=== PATIENT | female | born 1960 | race Hispanic/Latino ===

== ENCOUNTER 2019-04-23 18:05 | Emergency (ER) | payer OTHER, MEDICARE ==
[2019-04-23] MEDS ORDERED: MORPHINE 2 MG/1 ML INJ IV ONE (19:02)
[2019-04-23] MEDS ORDERED: FAMOTIDINE 20 MG/2 ML INJ IV ONE (19:02)
[2019-04-23] MEDS ORDERED: DICYCLOMINE 20 MG/2 ML INJ IM ONE (19:02)
[2019-04-23] MEDS ORDERED: SODIUM CHLORIDE 0.9% 1000 ML 1,000 ML IV ONE (19:02)
[2019-04-23] MEDS ORDERED: ONDANSETRON 4 MG/2 ML INJ IV ONE (19:02)
--- NOTE | 2019-04-23 20:11 | XRay Report ---
CHEST 2 VIEWS INDICATION: chest pain. COMPARISON: None. FINDINGS: Support devices: None. Heart: Mild cardiomegaly. Lungs/Pleura: No acute air space or interstitial disease. No significant pleural effusion. IMPRESSION: Mild cardiomegaly. Signer Name: Dougie Gunderson MD Signed: 04/23/2019 8:07 PM Workstation Name: [id number]
[2019-04-23 20:38] LABS: Basophils # (Auto) 0.1 K/mm3 (0.0-0.1); Basophils % (Auto) 0.9 % (0.0-1.8); Eosinophils # (Auto) 1.5 K/mm3 (0.0-0.4); Eosinophils % (Auto) 9.5 % (0.0-4.3); Hematocrit 40.1 % (30.3-42.9); Hemoglobin 14.1 gm/dl (10.1-14.3); Lymphocytes # (Auto) 2.9 K/mm3 (1.2-5.4); Lymphocytes % (Auto) 18.9 % (13.4-35.0); Mean Corpuscular HGB Conc 35 % (30-34); Mean Corpuscular Volume 92 fl (79-97); Monocytes # (Auto) 0.9 K/mm3 (0.0-0.8); Monocytes % (Auto) 6.1 % (0.0-7.3); Platelet Count 294 K/mm3 (140-440); Red Blood Count 4.37 M/mm3 (3.65-5.03); Red Cell Distribution Width 14.2 % (13.2-15.2)
[2019-04-23 20:49] LABS: INR 0.94 (0.87-1.13)
[2019-04-23 20:50] LABS: Partial Thromboplastin Time 39.2 Sec. (24.2-36.6)
[2019-04-23 21:01] LABS: Alanine Aminotransferase 50 units/L (7-56); Albumin 3.9 g/dL (3.9-5); BUN/Creatinine Ratio 11; Blood Urea Nitrogen 8 mg/dL (7-17); Calcium 9.8 mg/dL (8.4-10.2); Hemolysis Index 4
[2019-04-23] MEDS ORDERED: MORPHINE 4 MG/1 ML INJ IV ONE (21:44)
--- NOTE | 2019-04-23 22:32 | Cat Scan Report ---
CT abdomen pelvis w con INDICATION: MAIN: 100ml Omni 300 epigastric pain nausea and vomiting. TECHNIQUE: All CT scans at this location are performed using the following dose modulation technique: Automated exposure control. CONTRAST: Omnipaque 300, 100 cc IV injection. COMPARISON: None available. CT ABDOMEN the parenchymal organs are unremarkable in appearance. Negative for abdominal mass or flui d collection. There is mild enhancement of the stomach greatest distally. Fluid is scattered at the c olon without significant wall thickening. Negative for significant bowel dilatation. Status post previous cholecystectomy. Negative for biliary dilatation. CT PELVIS: Negative for mass, fluid collection or inflammation. A normal appendix is identified. IMPRESSION: Possible gastritis/gastroenteritis. Signer Name: Dougie Gunderson MD Signed: 04/23/2019 10:28 PM Workstation Name: [id number]
--- NOTE | 2019-04-23 22:52 | Emergency Department Report ---
ED General Adult HPI - General Chief complaint: Chest Pain Stated complaint: CHEST PAIN Time Seen by Provider: 04/23/19 18:52 Source: patient, EMS Mode of arrival: Stretcher Limitations: No Limitations - History of Present Illness Initial comments: Patient is a 58-year-old female who is presenting with epigastric and chest discomfort. Patient states 2 days ago she had some watery diarrhea which is actually starting to resolve. Today she is having some epigastric discomfort with radiation of pain into the chest and left arm.. Patient denies cough cold or congestion. She has some mild nausea but no vomiting. Patient has a history of takotsubo syndrome. Patient was diagnosed with this in November 2018. Patient had a cardiac cath at that time for chest discomfort. He also has a history of cholecystectomy Severity scale (0 -10): 6 - Related Data Previous Rx's Medication Instructions Recorded Last Taken Type Dicyclomine [Bentyl] 20 mg PO QID #10 tablet 04/23/19 Unknown Rx Ondansetron [Zofran Odt] 4 mg PO Q8HR #10 tab.rapdis 04/23/19 Unknown Rx Pantoprazole [Protonix] 40 mg PO QDAY #30 tablet 04/23/19 Unknown Rx traMADoL [Ultram] 50 mg PO Q6HR PRN #12 tablet 04/23/19 Unknown Rx Allergies Allergy/AdvReac Type Severity Reaction Status Date / Time No Known Allergies Allergy Unverified 04/23/19 20:48 ED Review of Systems ROS: Stated complaint: CHEST PAIN Other details as noted in HPI Comment: All other systems reviewed and negative ED Past Medical Hx - Past Medical History Previous Medical History?: Yes Hx Heart Attack/AMI: Yes Hx GERD: Yes Hx COPD: Yes - Social History Smoking Status: Current Every Day Smoker Substance Use Type: Marijuana - Medications Home Medications: Home Medications Medication Instructions Recorded Confirmed Last Taken Type Dicyclomine [Bentyl] 20 mg PO QID #10 tablet 04/23/19 Unknown Rx Ondansetron [Zofran Odt] 4 mg PO Q8HR #10 tab.rapdis 04/23/19 Unknown Rx Pantoprazole [Protonix] 40 mg PO QDAY #30 tablet 04/23/19 Unknown Rx traMADoL [Ultram] 50 mg PO Q6HR PRN #12 tablet 04/23/19 Unknown Rx ED Physical Exam - General Limitations: No Limitations General appearance: alert, in no apparent distress - Head Head exam: Present: atraumatic, normocephalic - Eye Eye exam: Present: normal appearance - ENT ENT exam: Present: mucous membranes moist - Neck Neck exam: Present: normal inspection - Respiratory Respiratory exam: Present: normal lung sounds bilaterally. Absent: respiratory distress, wheezes, rales - Cardiovascular Cardiovascular Exam: Present: regular rate, normal rhythm, normal heart sounds. Absent: systolic murmur, diastolic murmur, rubs, gallop - GI/Abdominal GI/Abdominal exam: Present: soft, tenderness (epigastric), normal bowel sounds. Absent: distended, guarding, rebound, rigid - Extremities Exam Extremities exam: Present: normal inspection - Back Exam Back exam: Present: normal inspection - Neurological Exam Neurological exam: Present: alert, oriented X3 - Psychiatric Psychiatric exam: Present: normal affect, normal mood - Skin Skin exam: Present: warm, dry, intact, normal color. Absent: rash ED Course Vital Signs 04/23/19 04/23/19 04/23/19 19:25 19:36 19:59 Temperature 97.6 F 99.4 F Pulse Rate 69 70 Respiratory 17 17 18 Rate Blood Pressure 143/71 Blood Pressure 143/71 [Left] O2 Sat by Pulse 99 98 Oximetry 04/23/19 04/23/19 04/23/19 20:01 20:29 20:30 Temperature Pulse Rate 67 70 Respiratory 12 18 16 Rate Blood Pressure 132/47 140/63 Blood Pressure [Left] O2 Sat by Pulse 97 95 Oximetry 04/23/19 04/23/19 04/23/19 21:00 21:31 21:58 Temperature Pulse Rate 73 78 Respiratory 16 22 18 Rate Blood Pressure 157/77 141/84 Blood Pressure [Left] O2 Sat by Pulse 96 94 Oximetry ED Medical Decision Making - Lab Data Result diagrams: 04/23/19 20:16 04/23/19 20:16 Lab Results 04/23/19 04/23/19 04/23/19 Range/Units 20:16 20:16 20:16 WBC 15.3 H (4.5-11.0) K/mm3 RBC 4.37 (3.65-5.03) M/mm3 Hgb 14.1 (10.1-14.3) gm/dl Hct 40.1 (30.3-42.9) % MCV 92 (79-97) fl MCH 32 (28-32) pg MCHC 35 H (30-34) % RDW 14.2 (13.2-15.2) % Plt Count 294 (140-440) K/mm3 Lymph % (Auto) 18.9 (13.4-35.0) % [place] % (Auto) 6.1 (0.0-7.3) % Eos % (Auto) 9.5 H (0.0-4.3) % Baso % (Auto) 0.9 (0.0-1.8) % Lymph # 2.9 (1.2-5.4) K/mm3 [place] # 0.9 H (0.0-0.8) K/mm3 Eos # 1.5 H (0.0-0.4) K/mm3 Baso # 0.1 (0.0-0.1) K/mm3 Seg Neutrophils % 64.6 (40.0-70.0) % Seg Neutrophils # 9.9 H (1.8-7.7) K/mm3 PT 12.7 (12.2-14.9) Sec. INR 0.94 (0.87-1.13) APTT 39.2 H (24.2-36.6) Sec. Sodium 137 (137-145) mmol/L Potassium 3.6 (3.6-5.0) mmol/L Chloride 101.7 (98-107) mmol/L Carbon Dioxide 21 L (22-30) mmol/L Anion Gap 18 mmol/L BUN 8 (7-17) mg/dL Creatinine 0.7 (0.7-1.2) mg/dL Estimated GFR > 60 ml/min BUN/Creatinine Ratio 11 % Glucose 114 H (65-100) mg/dL Calcium 9.8 (8.4-10.2) mg/dL Total Bilirubin 0.60 (0.1-1.2) mg/dL AST 113 H (5-40) units/L ALT 50 (7-56) units/L Alkaline Phosphatase 184 H (35-129) units/L Troponin T < 0.010 (0.00-0.029) ng/mL Total Protein 7.3 (6.3-8.2) g/dL Albumin 3.9 (3.9-5) g/dL Albumin/Globulin Ratio 1.1 % Lipase 66 H (13-60) units/L - EKG Data -: EKG Interpreted by Al EKG shows normal: sinus rhythm, axis, intervals, QRS complexes, ST-T waves Rate: normal - EKG Data Interpretation: normal EKG - Radiology Data Ordering Physician: ANTON KHAN MD Date of Service: 04/23/19 Procedure(s): XR chest routine 2V Accession Number(s): [id number] cc: ANTON KHAN MD Fluoro Time In Minutes: CHEST 2 VIEWS INDICATION: chest pain. COMPARISON: None. FINDINGS: Support devices: None. Heart: Mild cardiomegaly. Lungs/Pleura: No acute air space or interstitial disease. No significant pleural effusion. IMPRESSION: Mild cardiomegaly. Signer Name: Dougie Gunderson MD Signed: 04/23/2019 8:07 PM Ordering Physician: ANTON KHAN MD Date of Service: 04/23/19 Procedure(s): CT abdomen pelvis w con Accession Number(s): [id number] cc: ANTON KHAN MD CT abdomen pelvis w con INDICATION: MAIN: 100ml Omni 300 epigastric pain nausea and vomiting. TECHNIQUE: All CT scans at this location are performed using the following dose modulation technique: Automated exposure control. CONTRAST: Omnipaque 300, 100 cc IV injection. COMPARISON: None available. CT ABDOMEN the parenchymal organs are unremarkable in appearance. Negative for abdominal mass or fluid collection. There is mild enhancement of the stomach greatest distally. Fluid is scattered at the colon without significant wall thickening. Negative for significant bowel dilatation. Status post previous cholecystectomy. Negative for biliary dilatation. CT PELVIS: Negative for mass, fluid collection or inflammation. A normal appendix is identified. IMPRESSION: Possible gastritis/gastroenteritis. Signer Name: Dougie Gunderson MD Signed: 04/23/2019 10:28 PM - Medical Decision Making Patient is a 58-year-old female is presenting with epigastric and chest pain. Pain is improved after nausea meds and a dose of morphine. Patient also given Bentyl and Pepcid. Patient be ruled out for acute ID with [address] does show evidence of some gastritis. Critical care attestation.: If time is entered above; I have spent that time in minutes in the direct care of this critically ill patient, excluding procedure time. ED Disposition Clinical Impression: Acute gastritis, Atypical chest pain Is pt being admited?: No Does the pt Need Aspirin: No Condition: Stable Instructions: Chest Pain (ED), Gastritis (ED) Referrals: [facility] [Provider Group] - 3-5 Days Time of Disposition: 22:55
[2019-04-24 00:14] VITALS: BP 117/61
== END 2019-04-24 00:15 | disposition home or self-care (01) ==
LOC: ED 18:05
DX: K29.00 Acute gastritis without bleeding (principal); R07.89 Other chest pain; I25.2 Old myocardial infarction; K21.9 Gastro-esophageal reflux disease without esophagitis; J44.9 Chronic obstructive pulmonary disease, unspecified; F17.200 Nicotine dependence, unspecified, uncomplicated; F12.10 Cannabis abuse, uncomplicated; Z79.899 Other long term (current) drug therapy
CPT/HCPCS: 36415; 71046; 74177; 80053; 83690; 84484; 85025; 85610; 85730; 93005; 93010; 96361; 96372; 96374; 96375; 96376; 99285; J0500; J2270; J2405; J7030; Q9967